=== PATIENT | female | born 1980 | race Caucasian/White ===

== ENCOUNTER 2016-11-17 21:50 | Emergency (ER) | payer MEDICAID ==
[2016-11-17 22:17] VITALS: BP 153/86
--- NOTE | 2016-11-17 23:55 | ER Document Report ---
ED GI/ - General Chief Complaint: Abdominal Pain Stated Complaint: FLANK PAIN Mode of Arrival: Ambulatory Information source: Patient TRAVEL OUTSIDE OF THE [place] IN LAST 30 DAYS: No - HPI Patient complains to provider of: Abdominal pain, Other - Leg pain Notes: 11/17/16 23:53 Patient arrives with complaints of right lower abdominal pain for the last 2 weeks. She states the pain is been constant. Nothing seems to make it better or worse. She denies any associated nausea, vomiting, diarrhea. She does report some constipation secondary to taking Subutex. She denies any fevers. She denies any dysuria or hematuria. She denies any vaginal bleeding or discharge. She had a 9 months ago, no other abdominal surgeries. No rash or injury. Patient also states that for the last few days she's had pain in her right anterior thigh. She feels like it might be swollen. She denies any injury to this area. No redness. She denies any recent trips or recent surgeries, no leg redness, no hormone use, no history of DVT or PE. She denies any chest pain or shortness of breath. She has not complaints at this moment. The patient states she is concerned that this abdominal pain is due to her appendix. - Related Data Allergies/Adverse Reactions: No Known Allergies Allergy (Verified 11/18/16 00:54) Past Medical History - Social History Smoking Status: Unknown if Ever Smoked Family History: None Renal/ Medical History: Denies: Hx Peritoneal Dialysis Psychiatric Medical History: Reports: Hx Depression - Immunizations Hx Diphtheria, Pertussis, Tetanus Vaccination: Yes Review of Systems - Review of Systems -: Yes All other systems reviewed and negative Physical Exam - Vital signs Vitals: Temp Pulse Resp BP Pulse Ox 98.1 F 72 18 153/86 H 98 11/17/16 22:16 11/17/16 22:16 11/17/16 22:16 11/17/16 22:16 11/17/16 22:16 - Notes Notes: GENERAL: alert, cooperative, nontoxic, no distress. HEAD: normocephalic, atraumatic EYES: conjunctiva pink without discharge, no external redness or swelling. EARS: no external swelling, no external redness NOSE: atraumatic, no external swelling MOUTH/THROAT: mucous membranes moist and pink, posterior pharynx without erythema, swelling, exudate. No trismus or drooling. NECK: soft, supple, full range of motion, no meningismus. CHEST: no distress, lungs clear and equal throughout. No wheezing, rales, rhonchi. CARDIAC: regular rate and rhythm, no murmur, normal capillary refill, normal pulses. No peripheral edema noted. ABDOMEN: Soft, mild tenderness to palpation in the right lower quadrant. No rebound tenderness or guarding. No pelvic tenderness on exam.. BACK: full range of motion, no CVA tenderness. EXTREMITIES: full range of motion of all extremities. No redness, no swelling. No significant tenderness noted. Full range of motion of the right lower extremity. NEURO: alert and oriented 3, no focal deficits, full range of motion of all extremities. PYSCH: appropriate mood, affect. Patient is cooperative. SKIN: pink, warm, dry, no rash. Course - Re-evaluation Re-evalutation: 11/18/16 02:19 Patient's nontoxic. Stable vitals. She has been experiencing right lower abdominal pain for approximately 2 weeks now. She has a benign exam with minimal tenderness. No peritoneal signs. No fever. No nausea vomiting diarrhea. She does report some constipation. The patient's lab work is all unremarkable. LFTs and lipase are normal. Urine shows no signs of infection. CT of the abdomen and pelvis shows no acute abnormality. Patient also complains of some right thigh pain and swelling. Exam is benign. The patient has no DVT risk factors, Doppler was not available this evening, therefore a d- dimer was ordered. Her d-dimer is elevated at 1.1, therefore she will require further testing to completely rule out DVT. The patient will come back tomorrow for a venous duplex to rule out DVT. I explained the risks and benefits of anticoagulation tonight, the patient opts for a dose of anticoagulation tonight prior to discharge. She will be given a dose of Lovenox at 1u/kg. She was instructed to follow-up with her primary care doctor at the next available appointment. Patient should return if she develops worsening abdominal pain, fever, chest pain, shortness of breath, or any further concerns. The patient is noted to have elevated blood pressure during today's emergency department visit. The patient was informed of this finding. The patient was instructed that this may be related to pre-hypertension and requires further evaluation with a primary care provider. The patient has no hypertensive symptoms at this time. The patient's emergency department workup and current diagnosis were explained to the patient and or family. Follow-up instructions were provided. Medications if prescribed were discussed. Instructions for when to return to the emergency department including specific worrisome symptoms were discussed with the patient and/or family. - Vital Signs Vital signs: Temp Pulse Resp BP Pulse Ox 98.1 F 72 18 153/86 H 98 11/17/16 22:16 11/17/16 22:16 11/17/16 22:16 11/17/16 22:16 11/17/16 22:16 - Laboratory Result Diagrams: 11/18/16 00:01 11/18/16 00:01 Laboratory results interpreted by me: 11/18/16 11/18/16 11/18/16 00:01 00:01 00:01 D-Dimer 1.18 H Glucose 126 H Urine Blood MODERATE H Discharge - Discharge Clinical Impression: Right thigh pain Abdominal pain Qualifiers: Abdominal location: right lower quadrant Qualified Code(s): R10.31 - Right lower quadrant pain Condition: Stable Disposition: HOME, SELF-CARE Instructions: Abdominal Pain ([facility]) Additional Instructions: Tylenol and Motrin as needed for pain. Follow-up tomorrow for an ultrasound of your right lower extremity to rule out blood clot. He should follow-up with her family doctor at the next aval Appointment for reevaluation of your chronic abdominal pain. Follow-up sooner for increased pain, fever, persistent vomiting , chest pain, shortness of breath, or any further concerns. Your blood pressure was elevated during today's visit. Have this rechecked with your doctor. Forms: Elevated Blood Pressure, Follow-Up Outpatient Testing
[2016-11-18 00:33] LABS: ABSOLUTE BASOPHILS # (AUTO) 0.1 10^3/uL (0.0-0.2); ABSOLUTE EOSINOPHILS # (AUTO) 0.3 10^3/uL (0.0-0.6); ABSOLUTE LYMPHOCYTES (AUTO) 2.4 10^3/uL (0.5-4.7); ABSOLUTE MONOCYTES (AUTO) 0.7 10^3/uL (0.1-1.4); ABSOLUTE NEUT (AUTO) 5.7 10^3/uL (1.7-8.2); BASOPHILS % (AUTO) 0.7 % (0-2); EOSINOPHILS % (AUTO) 3.3 % (0-6); HEMATOCRIT 37.3 % (36.0-47.0); HEMOGLOBIN 12.8 g/dL (12.0-15.5); HGB HCT DIFFERENCE 1.1; LYMPHOCYTES % (AUTO) 25.8 % (13-45); MEAN CORPUSCULAR HEMOGLOBIN 29.7 pg (27.0-33.4); MEAN CORPUSCULAR HGB CONC 34.4 g/dL (32.0-36.0); MEAN CORPUSCULAR VOLUME 87 fl (80-97); MONOCYTES % (AUTO) 7.9 % (3-13); RED BLOOD COUNT 4.31 10^6/uL (3.72-5.28); RED CELL DISTRIBUTION WIDTH 13.2 % (11.5-14.0); SEGMENTED NEUTROPHILS % (AUTO) 62.3 % (42-78); WHITE BLOOD COUNT 9.2 10^3/uL (4.0-10.5)
[2016-11-18 00:51] LABS: ALANINE AMINOTRANSFERASE 29 U/L (9-52); ALBUMIN 4.2 g/dL (3.5-5.0); ALKALINE PHOSPHATASE 69 U/L (38-126); ANION GAP 13 (5-19); ASPARTATE AMINO TRANSFERASE 19 U/L (14-36); BILIRUBIN,DIRECT 0.2 mg/dL (0.0-0.4); BILIRUBIN,TOTAL 0.3 mg/dL (0.2-1.3); BLOOD UREA NITROGEN 12 mg/dL (7-20); CALCIUM 9.7 mg/dL (8.4-10.2); CARBON DIOXIDE 23 mmol/L (22-30); CHLORIDE 106 mmol/L (98-107); CREATININE RESULT 0.71 mg/dL (0.52-1.25); GLUCOSE 126 mg/dL (75-110); LIPASE 106.5 U/L (23-300); POTASSIUM 4.2 mmol/L (3.6-5.0); SODIUM 141.9 mmol/L (137-145)
[2016-11-18 01:00] LABS: APPEARANCE,URINE CLEAR; BILIRUBIN,URINE NEGATIVE (NEGATIVE); GLUCOSE, URINE NEGATIVE (NEGATIVE); KETONES,URINE NEGATIVE (NEGATIVE); LEUKOCYTE ESTERASE,URINE NEGATIVE (NEGATIVE); NITRITE,URINE NEGATIVE (NEGATIVE); PROTEIN,URINE NEGATIVE (NEGATIVE); URINE SPECIFIC GRAVITY 1.016; UROBILINOGEN,URINE NEGATIVE mg/dL (<2.0)
[2016-11-18] MEDS ORDERED: ENOXAPARIN SODIUM INJ 100 MG/1 ML DISP.SYRIN SUBCUT ONE (02:17)
== END 2016-11-18 03:44 | disposition home or self-care (01) ==
LOC: ER 21:50
DX: K59.03 Drug induced constipation (principal); T40.4X5A Adverse effect of other synthetic narcotics, initial encounter; R10.31 Right lower quadrant pain; M79.651 Pain in right thigh; R03.0 Elevated blood-pressure reading, without diagnosis of hypertension; Z98.890 Other specified postprocedural states
CPT/HCPCS: 36415; 74177; 80053; 81001; 83690; 84703; 85025; 85379; 99284

== ENCOUNTER 2017-06-18 11:51 | Observation (INO) | payer MEDICAID ==
--- NOTE | 2017-06-18 12:19 | ER Document Report ---
ED Medical Screen (RME) - General Chief Complaint: Abdominal Cramping Stated Complaint: ABDOMINAL PAIN Time Seen by Provider: 06/18/17 12:18 Notes: Patient states she is 17 weeks . She states she has been constipated and having lots of cramping. She has tried laxatives and had a bowel movement but is still having cramping. She states she is unsure if the cramping is from constipation or from the uterus. She also states she has had some increase of discharge from her vagina but no bleeding. She has had vomiting. TRAVEL OUTSIDE OF THE [place] IN LAST 30 DAYS: No - Related Data Allergies/Adverse Reactions: No Known Allergies Allergy (Verified 06/18/17 12:03) Past Medical History - Social History Chew tobacco use (# tins/day): No Frequency of alcohol use: None Drug Abuse: None Renal/ Medical History: Denies: Hx Peritoneal Dialysis Psychiatric Medical History: Reports: Hx Depression Past Surgical History: Reports: Hx Section - Immunizations Hx Diphtheria, Pertussis, Tetanus Vaccination: Yes Physical Exam - Vital signs Vitals: Temp Pulse Resp BP Pulse Ox 98.6 F 91 16 128/75 H 99 06/18/17 12:03 06/18/17 12:03 06/18/17 12:03 06/18/17 12:03 06/18/17 12:03 Course - Vital Signs Vital signs: Temp Pulse Resp BP Pulse Ox 98.6 F 91 16 128/75 H 99 06/18/17 12:03 06/18/17 12:03 06/18/17 12:03 06/18/17 12:03 06/18/17 12:03
[2017-06-18 13:19] LABS: HEMATOCRIT 35.3 % (36.0-47.0); HEMOGLOBIN 12.2 g/dL (12.0-15.5); HGB HCT DIFFERENCE 1.3; MEAN CORPUSCULAR HEMOGLOBIN 30.7 pg (27.0-33.4); MEAN CORPUSCULAR HGB CONC 34.5 g/dL (32.0-36.0); MEAN CORPUSCULAR VOLUME 89 fl (80-97); RED BLOOD COUNT 3.97 10^6/uL (3.72-5.28); RED CELL DISTRIBUTION WIDTH 12.9 % (11.5-14.0); WHITE BLOOD COUNT 25.4 10^3/uL (4.0-10.5)
[2017-06-18 13:33] LABS: ALANINE AMINOTRANSFERASE 26 U/L (9-52); ALKALINE PHOSPHATASE 82 U/L (38-126); ANION GAP 10 (5-19); ASPARTATE AMINO TRANSFERASE 14 U/L (14-36); BILIRUBIN,DIRECT 0.4 mg/dL (0.0-0.4); BILIRUBIN,TOTAL 0.4 mg/dL (0.2-1.3); BLOOD UREA NITROGEN 5 mg/dL (7-20); CALCIUM 9.1 mg/dL (8.4-10.2); CARBON DIOXIDE 22 mmol/L (22-30); CHLORIDE 107 mmol/L (98-107); CREATININE RESULT 0.57 mg/dL (0.52-1.25); GLUCOSE 93 mg/dL (75-110); POTASSIUM 4.3 mmol/L (3.6-5.0); SODIUM 138.6 mmol/L (137-145); TOTAL PROTEIN 7.6 g/dL (6.3-8.2)
[2017-06-18 13:39] LABS: BASOPHILS % (MANUAL) 0 % (0-2); EOSINOPHILS % (MANUAL) 0 % (0-6); LYMPHOCYTES % (MANUAL) 5 % (13-45); RBC MORPHOLOGY COMMENT NORMO-CYTIC/CHROMIC; TOTAL CELLS COUNTED 100; TOXIC GRANULATION 1+
--- NOTE | 2017-06-18 14:07 | ER Document Report ---
ED GI/ - General Chief Complaint: Abdominal Cramping Stated Complaint: ABDOMINAL PAIN Time Seen by Provider: 06/18/17 12:18 Notes: The patient is a 37-year-old female, 17 weeks , , on Suboxone, presents with several days of abdominal cramping that lasts about 1 minute each time and is worsening over the past few hours. She is also feeling constipated. Patient is noticing some clear vaginal discharge. Pt is confirmed to be 17 weeks by multiple outpatient ultrasounds. TRAVEL OUTSIDE OF THE [place] IN LAST 30 DAYS: No - Related Data Allergies/Adverse Reactions: No Known Allergies Allergy (Verified 06/18/17 12:03) Home Medications: Current Home Medications Buprenorphine HCl [Subutex 8 mg Sublingual Tablet] 1 tab SL DAILY 06/18/17 [ History] Past Medical History - General Information source: Patient - Social History Smoking Status: Current Every Day Smoker Chew tobacco use (# tins/day): No Frequency of alcohol use: None Drug Abuse: None Family History: None Patient has suicidal ideation: No Patient has homicidal ideation: No Renal/ Medical History: Denies: Hx Peritoneal Dialysis Psychiatric Medical History: Reports: Hx Depression Past Surgical History: Reports: Hx Section - Immunizations Hx Diphtheria, Pertussis, Tetanus Vaccination: Yes Review of Systems - Review of Systems Notes: REVIEW OF SYSTEMS: CONSTITUTIONAL: -fevers, -chills EENT: -eye pain, -difficulty swallowing, -nasal congestion CARDIOVASCULAR:-chest pain, -syncope. RESPIRATORY: -cough, -SOB GASTROINTESTINAL: +lower abdominal pain, +RUQ abdominal pain, +nausea, -vomiting , -diarrhea GENITOURINARY: -dysuria, -hematuria MUSCULOSKELETAL: -back pain, -neck pain SKIN: -rash or skin lesions. HEMATOLOGIC: -easy bruising or bleeding. LYMPHATIC: -swollen, enlarged glands. NEUROLOGICAL: -altered mental status or loss of consciousness, -headache, - neurologic symptoms PSYCHIATRIC: -anxiety, -depression. ALL OTHER SYSTEMS REVIEWED AND NEGATIVE. Physical Exam - Vital signs Vitals: Temp Pulse Resp BP Pulse Ox 98.6 F 91 16 128/75 H 99 06/18/17 12:03 06/18/17 12:03 06/18/17 12:03 06/18/17 12:03 06/18/17 12:03 - Notes Notes: PHYSICAL EXAMINATION: GENERAL: Uncomfortable. HEAD: Atraumatic, normocephalic. EYES: Pupils equal round and reactive to light, extraocular movements intact, sclera anicteric, conjunctiva are normal. ENT: nares patent, oropharynx clear without exudates. Moist mucous membranes. NECK: Normal range of motion, supple without lymphadenopathy LUNGS: Breath sounds clear to auscultation bilaterally and equal. No wheezes rales or rhonchi. HEART: Regular rate and rhythm without murmurs ABDOMEN: Gravid abdomen, Lower abdominal and RUQ tenderness, normoactive bowel sounds. No guarding, no rebound. No masses appreciated. EXTREMITIES: Normal range of motion, no pitting or edema. No cyanosis. NEUROLOGICAL: Cranial nerves grossly intact. Normal speech, normal gait. Normal sensory and motor exams. SKIN: Warm, Dry, normal turgor, no rashes or lesions noted. Course - Re-evaluation Re-evalutation: 06/18/17 15:17 Pt with intermittent lower abdominal cramping that is worsening over the past few hours. Prior to my pelvic exam, patient was taken to ultrasound. Ultrasound called and said that there is a head in the cervix without any surrounding fluid and FHR 152. Met the patient in the room when she arrived back to the ER from ultrasound. Pt confirms that she is 17 weeks , which is previable, by multiple outpatient ultrasounds. Glove Former from [facility] is confirming dates. Glove Former confirms patient is 18.5 weeks , which is non-viable. 06/18/17 16:04 Spoke to her OB, Dr. Gilbert Barrios, and will admit patient to floor for further expectant management. - Vital Signs Vital signs: Temp Pulse Resp BP Pulse Ox 98.2 F 87 18 116/63 98 06/18/17 20:00 06/18/17 20:00 06/18/17 20:00 06/18/17 20:00 06/18/17 20:00 - Laboratory Result Diagrams: 06/18/17 12:51 06/18/17 12:51 Laboratory results interpreted by me: 06/18/17 06/18/17 06/18/17 12:51 12:51 13:50 WBC 25.4 H Hct 35.3 L Seg Neuts % (Manual) 92 H Lymphocytes % (Manual) 5 L Abs Neuts (Manual) 23.4 H BUN 5 L Urine Ketones 20 H Urine Blood SMALL H Ur Leukocyte Esterase SMALL H - Diagnostic Test Radiology reviewed: Image reviewed, Reports reviewed Radiology results interpreted by me: QUINTON US: NAD OB US: Fetus with head in cervix. FHR 152. Critical Care Note - Critical Care Note Total time excluding time spent on procedures (mins): 35 Discharge - Discharge Clinical Impression: Miscarriage Condition: Stable Disposition: ADMITTED INPATIENT Admitting Provider: Gilbert Barrios Unit Admitted: Post
[2017-06-18 14:09] LABS: APPEARANCE,URINE CLEAR; BILIRUBIN,URINE NEGATIVE (NEGATIVE); GLUCOSE, URINE NEGATIVE (NEGATIVE); KETONES,URINE 20 mg/dL (NEGATIVE); LEUKOCYTE ESTERASE,URINE SMALL (NEGATIVE); NITRITE,URINE NEGATIVE (NEGATIVE); PROTEIN,URINE NEGATIVE (NEGATIVE); URINE SPECIFIC GRAVITY 1.009; UROBILINOGEN,URINE NEGATIVE mg/dL (<2.0)
[2017-06-18] MEDS ORDERED: ACETAMINOPHEN 325 MG TABLET PO ONE (14:20)
[2017-06-18] MEDS ORDERED: MORPHINE SULFATE 10 MG/ML INJ ONE (15:26)
[2017-06-18] MEDS ORDERED: MORPHINE SULFATE 10 MG/ML INJ IM ONE (15:30)
--- NOTE | 2017-06-18 15:31 | RADIOLOGY REPORT (SQ) ---
EXAM DESCRIPTION: U/S ABDOMEN LIMITED W/O DOP COMPLETED DATE/TIME: 06/18/2017 3:20 pm REASON FOR STUDY: RUQ tenderness, leukocytosis COMPARISON: None. TECHNIQUE: Dynamic and static grayscale images acquired of the abdomen and recorded on PACS. Additio nal selected color Doppler and spectral images recorded. LIMITATIONS: None. FINDINGS: PANCREAS: No masses. Visualized pancreatic duct normal caliber. LIVER: No masses. Echotexture normal. LIVER VASCULATURE: Normal directional flow of the main portal vein and hepatic veins. GALLBLADDER: No stones. Normal wall thickness. No pericholecystic fluid. ULTRASOUND-DETECTED MADDOX'S SIGN: Negative. INTRAHEPATIC DUCTS AND COMMON DUCT: CBD and intrahepatic ducts normal caliber. No filling defects. INFERIOR VENA CAVA: Normal flow. AORTA: No aneurysm. RIGHT KIDNEY: Normal size. Normal echogenicity. No solid or suspicious masses. No hydronephrosis. No calcifications. PERITONEAL AND RIGHT PLEURAL SPACE: No ascites or effusions. OTHER: No other significant findings. IMPRESSION: NORMAL RIGHT UPPER QUADRANT ULTRASOUND. TECHNICAL DOCUMENTATION: JOB ID: [id number]- All Rights Reserved
[2017-06-18] MEDS: NORMAL SALINE 1000 ML 1,000 ML IV PRN ×2 (15:33→16:12)
--- NOTE | 2017-06-18 15:50 | RADIOLOGY REPORT (SQ) ---
EXAM DESCRIPTION: U/S OB LIMITED COMPLETED DATE/TIME: 06/18/2017 3:28 pm REASON FOR STUDY: preg/pain/vag discharge COMPARISON: None. TECHNIQUE: Limited transabdominal grayscale ultrasound for evaluation of specific requested obstetri maribel parameters. LIMITATIONS: None. FINDINGS: A single fetus is present vertex orientation, heart rate 152 beats per minute. There is f unneling of the cervix, head is within the cervix. KEDAR: No discernible amniotic fluid around the fetus. FHR: 152 beats per minute. PRESENTATION: Cephalic. OTHER: This finding was called as a critical result to Dr. Alves, 1500 hours 06/16/2017 IMPRESSION: Premature rupture of membranes with oligohydramnios Premature labor, cervix is funnel, head is down in the cervix Trimester of : Third trimester - 28 weeks to delivery. TECHNICAL DOCUMENTATION: JOB ID: [id number] [employer]- All Rights Reserved
[2017-06-18] MEDS ORDERED: KETOROLAC TROMETHAMINE INJ/PF 30 MG/1 ML SDV IV ONE (16:06)
[2017-06-18] MEDS ORDERED: ONDANSETRON 4 MG TAB.RAPDIS PO PRN (18:08)
[2017-06-18] MEDS: HYDROMORPHONE HCL INJ/PF 2 MG/ML AMPULE IV PRN (18:51)
[2017-06-18] MEDS: RINGERS SOLUTION,LACTATED 1,000 ML IV PRN (18:53)
--- NOTE | 2017-06-18 20:09 | RADIOLOGY REPORT (SQ) ---
EXAM DESCRIPTION: U/S OB LIMITED COMPLETED DATE/TIME: 06/18/2017 7:58 pm REASON FOR STUDY: Dates COMPARISON: 06/18/2017 TECHNIQUE: Limited transabdominal grayscale ultrasound for evaluation of specific requested obstetri maribel parameters. LIMITATIONS: None. FINDINGS: CERVICAL LENGTH: Not visualized KEDAR: 0 cm. FHR: 155 beats per minute. PRESENTATION: Cephalic. OTHER: Estimated gestational age is 18 weeks 3 days with estimated due date of 11/16/2017. Estimated weight is 225 g +/-30 33 g. head is identified within the cervix. IMPRESSION: LIMITED OBSTETRICAL ULTRASOUND WITH MEASURED PARAMETERS DELINEATED ABOVE. Trimester of : Second trimester - 13 weeks 1 day to 27 weeks 6 days. TECHNICAL DOCUMENTATION: JOB ID: [id number] [employer]- All Rights Reserved
[2017-06-18] MEDS ORDERED: NICOTINE 21 MG/24 HR PATCH.TD24 TD ONE (22:00)
[2017-06-19] MEDS: HYDROMORPHONE HCL INJ/PF 2 MG/ML AMPULE IV PRN ×3 (00:09→04:21)
[2017-06-19] MEDS ORDERED: HYDROMORPHONE HCL INJ/PF 2 MG/ML AMPULE IV PRN (04:22)
[2017-06-19] MEDS ORDERED: HYDROMORPHONE HCL INJ/PF 2 MG/ML AMPULE IV ONE (04:30)
[2017-06-19] MEDS: RINGERS SOLUTION,LACTATED 1,000 ML IV PRN (04:35)
[2017-06-19] MEDS ORDERED: MISOPROSTOL 0.2 MG TABLET ONE (06:26)
[2017-06-19] MEDS: MISOPROSTOL 0.2 MG TABLET PO SCH ×2 (07:24→10:41)
[2017-06-19] MEDS ORDERED: (PENDING PHARMACY ID) (Pnv,Calcium 72/Iron/Folic Acid [Pnv Prenatal Plus Multivit Tab] 1 T PO SCH (10:00)
[2017-06-19] MEDS ORDERED: NICOTINE 21 MG/24 HR PATCH.TD24 TD SCH (10:00)
[2017-06-19] MEDS ORDERED: (PENDING PHARMACY ID) (Buprenorphine Hcl [Subutex 8 Mg Sublingual Tablet] 1 TAB) SL SCH (10:00)
[2017-06-19] MEDS ORDERED: PRENATAL VITAMIN W DHA CAPSULE PO SCH (10:00)
[2017-06-19] MEDS ORDERED: DOCUSATE SODIUM 100 MG CAPSULE PO SCH (10:00)
--- NOTE | 2017-06-19 10:39 | PDOC DISCHARGE SUMMARY ---
General - Admit/Disc Date/PCP Admission Date/Primary Care Provider: 06/18/17 16:22 ISAI JACK MD Discharge Date: 06/19/17 - Discharge Diagnosis (1) Miscarriage Is this a current diagnosis for this admission?: Yes Summary: pt presented with signs and symptoms of incompetent cervix and went on to deliver a fetus at approximately 18 wks EGA. Placenta delivered soon after fetus. Pt's bleeding under control. - Additional Information Home Medications: Pnv,Calcium 72/Iron/Folic Acid [Pnv Plus Multivit Tab] 1 tab PO DAILY 02/06/16 Docusate Sodium [Colace 100 mg Capsule] 100 mg PO BID #60 capsule 02/16/16 Buprenorphine HCl [Subutex 8 mg Sublingual Tablet] 1 tab SL DAILY 06/18/17 History of Present Illness History of Present Illness: REFUGIO COYNE is a 37 year old female Hospital Course Hospital Course: please see above Physical Exam - Physical Exam Vital Signs: Temp Pulse Resp BP Pulse Ox 98.7 F 83 16 111/54 L 99 06/19/17 08:15 06/19/17 08:15 06/19/17 08:15 06/19/17 08:15 06/19/17 08:15 Intake & Output 06/18/17 06/19/17 06/20/17 06:59 06:59 06:59 Intake Total 500 Output Total 600 Balance -100 General appearance: PRESENT: no acute distress, cooperative GI/Abdominal exam: PRESENT: soft Result Impressions: Obstetrics Ultrasound 06/18/17 12:18 IMPRESSION: Premature rupture of membranes with oligohydramnios Premature labor, cervix is funnel, head is down in the cervix Trimester of : Third trimester - 28 weeks to delivery. Abdomen Ultrasound 06/18/17 14:19 IMPRESSION: NORMAL RIGHT UPPER QUADRANT ULTRASOUND. Plan Discharge Plan: patient now s/p 2nd trimester loss with leukocytosis. Will discharge home with NSAIDs and prescription for antibiotics in light of elevated WBC. Has instructions for f/u at [facility] in 2 wks for vaginal exam. Strict precautions reviewed. Time Spent: Less than 30 Minutes
[2017-06-19 11:57] VITALS: BP 128/75
== END 2017-06-19 12:39 | disposition home or self-care (01) ==
LOC: ER 11:51 → INTOOBSV 16:22 → EH 16:22 → 2N 16:58
PROVIDERS: ADMIT Obstetrics & Gynecology; ATTEND Obstetrics & Gynecology
DX: O03.89 Complete or unspecified spontaneous abortion with other complications (principal); O34.32 Maternal care for cervical incompetence, second trimester; O42.912 Preterm premature rupture of membranes, unspecified as to length of time between rupture and onset of labor, second trimester; Z37.0 Single live birth; Z3A.18 18 weeks gestation of pregnancy; D72.829 Elevated white blood cell count, unspecified; O99.332 Smoking (tobacco) complicating pregnancy, second trimester; F17.200 Nicotine dependence, unspecified, uncomplicated; Z79.899 Other long term (current) drug therapy; Z79.891 Long term (current) use of opiate analgesic
CPT/HCPCS: 99291; 96372; 96374; 36415; 85025; 80053; 81001; 76705; 76815; G0378 ×2; J3490 ×5; J1885; J2270; J1170 ×2; J7030; J7120 ×2

== ENCOUNTER 2018-03-15 20:08 | Emergency (ER) | payer MEDICAID ==
--- NOTE | 2018-03-15 20:30 | ER Document Report ---
ED Medical Screen (RME) - General Chief Complaint: Other Stated Complaint: NECK/SHOULDER PAIN Time Seen by Provider: 03/15/18 20:21 Notes: Patient is a 37 year old female that comes to the ED for multiple complaints. Complaints include palpitations, tingling and throbbing sensations in her extremities mainly her legs, questionable swollen area along her neck and right clavicular area, patient states that she is worried that she might have some sort of lymph node or thyroid cancer, states her significant other was just diagnosed with lymphoma and she was to get checked out. No chest pain or shortness of breath. She also states that her white blood cell count was " really high" last time and she needs this rechecked. Medications include Adderall and Subutex. She smokes. She denies recreational drugs or alcohol. TRAVEL OUTSIDE OF THE [place] IN LAST 30 DAYS: No - Related Data Allergies/Adverse Reactions: No Known Allergies Allergy (Verified 06/18/17 12:03) Past Medical History - Social History Frequency of alcohol use: None Renal/ Medical History: Denies: Hx Peritoneal Dialysis Psychiatric Medical History: Reports: Hx Depression Past Surgical History: Reports: Hx Section - Immunizations Hx Diphtheria, Pertussis, Tetanus Vaccination: Yes History of Influenza Vaccine for 05/2017 - 10/2017 Season: No Physical Exam - Vital signs Vitals: Temp Pulse Resp BP Pulse Ox 98.8 F 78 15 149/87 H 99 03/15/18 20:13 03/15/18 20:13 03/15/18 20:13 03/15/18 20:13 03/15/18 20:13 - General General appearance: Anxious In distress: None - Extremities General upper extremity: Normal inspection, Nontender, Normal ROM, Normal strength General lower extremity: Normal inspection, Nontender, Normal ROM, Normal strength. No: Edema Course - Vital Signs Vital signs: Temp Pulse Resp BP Pulse Ox 98.8 F 78 15 149/87 H 99 03/15/18 20:13 03/15/18 20:13 03/15/18 20:13 03/15/18 20:13 03/15/18 20:13 Doctor's Discharge - Discharge Referrals: ISAI JACK MD [Primary Care Provider] - Follow up as needed
--- NOTE | 2018-03-15 21:00 | ER Document Report ---
ED General - General Chief Complaint: Other Stated Complaint: NECK/SHOULDER PAIN Time Seen by Provider: 03/15/18 20:21 Notes: Patient is a 37-year-old female without chronic medical problems who presents with multiple complaints. Her main concern is that her significant other was recently diagnosed with cancer and she has been feeling fatigued, had some swollen lymph nodes more noticeable on the right lower jaw and had some right lower cavity pain. She states that she wants to make sure she does not also have cancer. She states that she has also had hair loss. She denies any chest pain or shortness of breath, fever or constitutional symptoms. She has had some intermittent sore throat. No nausea or vomiting. No unintentional weight loss. She denies a history of similar symptoms in the past. Nothing improves or worsens her symptoms. She has not seen her general doctor regarding today's concerns. TRAVEL OUTSIDE OF THE [place] IN LAST 30 DAYS: No - Related Data Allergies/Adverse Reactions: No Known Allergies Allergy (Verified 06/18/17 12:03) Past Medical History - General Information source: Patient - Social History Smoking Status: Current Every Day Smoker Frequency of alcohol use: None Drug Abuse: None Lives with: Spouse/Significant other Family History: None Patient has suicidal ideation: No Patient has homicidal ideation: No Renal/ Medical History: Denies: Hx Peritoneal Dialysis Psychiatric Medical History: Reports: Hx Depression Past Surgical History: Reports: Hx Section - Immunizations Hx Diphtheria, Pertussis, Tetanus Vaccination: Yes Review of Systems - Review of Systems Notes: Constitutional: Negative for fever. Positive for general fatigue HENT: Positive for supplemental lymphadenopathy Eyes: Negative for visual changes. Cardiovascular: Negative for chest pain. Respiratory: Negative for shortness of breath. Gastrointestinal: Negative for abdominal pain, vomiting or diarrhea. Genitourinary: Negative for dysuria. Musculoskeletal: Positive for right lower extremity pain Skin: Negative for rash. Neurological: Negative for headaches, weakness or numbness. 10 point ROS negative except as marked above and in HPI. Physical Exam - Vital signs Vitals: Temp Pulse Resp BP Pulse Ox 98.8 F 78 15 149/87 H 99 03/15/18 20:13 03/15/18 20:13 03/15/18 20:13 03/15/18 20:13 03/15/18 20:13 Interpretation: Hypertensive Notes: PHYSICAL EXAMINATION: GENERAL: Well-appearing, well-nourished and in no acute distress. HEAD: Atraumatic, normocephalic. EYES: Pupils equal round and reactive to light, extraocular movements intact, sclera anicteric, conjunctiva are normal. ENT: nares patent, oropharynx clear without exudates. Moist mucous membranes. NECK: Normal range of motion, bilateral, tender, mobile submandibular lymphadenopathy LUNGS: Breath sounds clear to auscultation bilaterally and equal. No wheezes rales or rhonchi. HEART: Regular rate and rhythm without murmurs ABDOMEN: Soft, nontender, normoactive bowel sounds. No guarding, no rebound. No masses appreciated. EXTREMITIES: Normal range of motion, no pitting or edema. No cyanosis. NEUROLOGICAL: No focal neurological deficits. Moves all extremities spontaneously and on command. PSYCH: Normal mood, normal affect. SKIN: Warm, Dry, normal turgor, no rashes or lesions noted. Course - Re-evaluation Re-evalutation: 03/15/18 20:56 Patient presents with multiple vague complaints that did not appear to be concerning for any acute life-threatening pathology. Vitals are within normal limits at triage and at time of discharge. Physical examination is unremarkable. Patient has tolerated oral intake without difficulty. Patient was not noted to be in distress at any point during their ER visit. At this time, based on the reassuring evaluation, I do not suspect an acute [place], pulmonary embolus, aortic dissection, acute intra-abdominal pathology, stroke, or sepsis.Will discharge with return precautions and follow-up recommendations. Verbal discharge instructions given a the bedside and opportunity for questions given. Medication warnings reviewed. Patient is in agreement with this plan and has verbalized understanding of return precautions and the need for primary care follow-up in the next 24-72 hours. - Vital Signs Vital signs: Temp Pulse Resp BP Pulse Ox 98.8 F 78 15 149/87 H 99 03/15/18 20:13 03/15/18 20:13 03/15/18 20:13 03/15/18 20:13 03/15/18 20:13 Discharge - Discharge Clinical Impression: Right leg pain, Submandibular lymphadenopathy, Multiple complaints Condition: Good Disposition: HOME, SELF-CARE Additional Instructions: Your labs are reassuring today. Please return to the emergency room immediately if you experience any concerning symptoms including high fevers, severe headache, chest pain, difficulty breathing, abdominal pain, slurred speech, numbness or weakness in your arms or legs, or any other symptom that concerns you. Referrals: ISAI JACK MD [ACTIVE STAFF] - Follow up as needed
[2018-03-15 21:21] LABS: ABSOLUTE EOSINOPHILS # (AUTO) 0.2 10^3/uL (0.0-0.6); ABSOLUTE LYMPHOCYTES (AUTO) 1.6 10^3/uL (0.5-4.7); ABSOLUTE MONOCYTES (AUTO) 0.4 10^3/uL (0.1-1.4); ABSOLUTE NEUT (AUTO) 4.3 10^3/uL (1.7-8.2); BASOPHILS % (AUTO) 0.5 % (0-2); EOSINOPHILS % (AUTO) 3.1 % (0-6); HEMOGLOBIN 14.3 g/dL (12.0-15.5); LYMPHOCYTES % (AUTO) 24.8 % (13-45); MEAN CORPUSCULAR HEMOGLOBIN 30.5 pg (27.0-33.4); MEAN CORPUSCULAR HGB CONC 34.2 g/dL (32.0-36.0); MEAN CORPUSCULAR VOLUME 89 fl (80-97); PLATELET COUNT 284 10^3/uL (150-450); RED CELL DISTRIBUTION WIDTH 13.1 % (11.5-14.0); SEGMENTED NEUTROPHILS % (AUTO) 65.6 % (42-78); TOTAL CELLS COUNTED % (AUTO) 100 %; WHITE BLOOD COUNT 6.6 10^3/uL (4.0-10.5)
[2018-03-15 21:42] LABS: ANION GAP 13 (5-19); BLOOD UREA NITROGEN 10 mg/dL (7-20); CALCIUM 9.5 mg/dL (8.4-10.2); CARBON DIOXIDE 25 mmol/L (22-30); CHLORIDE 106 mmol/L (98-107); GLUCOSE 65 mg/dL (75-110); POTASSIUM 3.6 mmol/L (3.6-5.0); SODIUM 143.9 mmol/L (137-145)
[2018-03-15 21:57] LABS: FREE T4 (FREE THYROXINE) 1.07 ng/dL (0.78-2.19)
[2018-03-15 22:11] LABS: THYROID STIMULATING HORMONE 2.77 uIU/mL (0.47-4.68)
[2018-03-15 22:54] VITALS: BP 164/109
--- NOTE | 2018-03-15 23:07 | EKG REPORT ---
SEVERITY:- NORMAL ECG - SINUS RHYTHM : Confirmed by: Ana Martino MD 15-Mar-2018 23:06:56
== END 2018-03-15 22:54 | disposition home or self-care (01) ==
LOC: ER 20:08
DX: M79.604 Pain in right leg (principal); R59.0 Localized enlarged lymph nodes; R53.83 Other fatigue; F17.200 Nicotine dependence, unspecified, uncomplicated
CPT/HCPCS: 36415; 80048; 84439; 84443; 84703; 85025; 93005; 93010; 99284